=== PATIENT | female | born 1945 | race Caucasian/White ===

== ENCOUNTER 2021-01-20 21:17 | Inpatient (IN) | payer MEDICARE, OTHER ==
[~2021-01-20] VITALS: Ht 160 cm; Wt 135.0 kg
[~2021-01-20 21:17] MED LIST: ASPIRIN325 MG PO; EXFORGE 5-1601 EACH PO; FENOFIBRATE145 MG PO; OS-CAL+D500 MG PO; PERCOCET 5/3251 TAB PO; VITAMIN E200 UNI1 PO
[2021-01-20 21:47] LABS: BASOPHIL 0.3 % (0-2); EOSINOPHIL 0.3 % (0-7); HCT 44.2 % (37.0-47.0); HGB 13.5 g/dl (12.5-16.0); LYMPHOCYTE 8.1 % (15-48); MCH 27.8 pg (25.0-31.0); MCHC 30.5 g/dL (32.0-36.0); MCV 91.1 fL (78.0-100.0); MONOCYTE 4.4 % (0-12); MPV 11.5 fL (6.0-9.5); NEUTROPHIL 86.4 % (41-80); NRBC 0; PLT 245 K/uL (150-400); RBC 4.85 M/uL (4.20-5.40); RDW 15.4 % (11.5-14.0); WBC 15.8 K/uL (4.0-10.5)
[2021-01-20 22:10] LABS: PRO-BNP 1820 pg/mL (<125)
[2021-01-20 22:12] LABS: ALBUMIN 3.9 g/dL (3.4-5.0); BUN/CREAT RATIO (CALC) 22.2 RATIO; CREATININE 0.72 mg/dL (0.51-0.95); GLOBULIN (CALCULATION) 3.8 g/dL; TOTAL PROTEIN 7.7 g/dL (6.4-8.2)
[2021-01-20 22:17] LABS: LACTIC ACID 2.3 mmol/L (0.4-1.9)
[2021-01-20 23:11] LABS: CORONAVIRUS 2019 SARS-COV-2 NEGATIVE (NEGATIVE); INFLUENZA A NAA NEGATIVE (NEGATIVE)
[2021-01-21 02:37] LABS: BUN/CREAT RATIO (CALC) 21.9 RATIO; CREATININE 0.73 mg/dL (0.51-0.95); POTASSIUM 4.2 mmol/L (3.5-5.1)
[2021-01-21] MEDS ORDERED: ACULAR5 ML OS (03:22)
--- NOTE | 2021-01-21 06:58 | NUR ---
PT ON CARDIZEM DRIP RUNNING AT 10. 0400 - 107 HR, 123/70 BP 0500 - 92 HR, 120/94 BP 0600 - 87 HR, 114/62 BP
[2021-01-21 07:11] LABS: BASOPHIL 0.1 % (0-2); EOSINOPHIL 0 % (0-7); HCT 37.7 % (37.0-47.0); HGB 11.9 g/dl (12.5-16.0); LYMPHOCYTE 5.5 % (15-48); MCH 28.2 pg (25.0-31.0); MCHC 31.6 g/dL (32.0-36.0); MCV 89.3 fL (78.0-100.0); MONOCYTE 0.9 % (0-12); MPV 11.6 fL (6.0-9.5); NEUTROPHIL 93.1 % (41-80); NRBC 0; PLT 220 K/uL (150-400); RBC 4.22 M/uL (4.20-5.40); RDW 15.5 % (11.5-14.0); WBC 11.4 K/uL (4.0-10.5)
[2021-01-21 07:35] LABS: CREATININE 0.75 mg/dL (0.51-0.95); MAGNESIUM 1.8 mg/dL (1.8-2.4); POTASSIUM 4.1 mmol/L (3.5-5.1)
[2021-01-21] MEDS ORDERED: SINGULAIR10 MG PO (13:46)
[2021-01-21] MEDS ORDERED: IRBESARTAN300 MG PO (13:47)
[2021-01-21] MEDS ORDERED: MILK THISTLE175 M1 PO (13:48)
[2021-01-21] MEDS ORDERED: VENTOLIN HFA IN18 GM INH (13:50)
[2021-01-21] MEDS ORDERED: CENTRUM SILVER1 EAC4 PO (13:51)
[2021-01-21] MEDS ORDERED: CAL MAG ZINC +1 EAC1 PO (13:53)
[2021-01-22 05:23] LABS: BASOPHIL 0.1 % (0-2); EOSINOPHIL 0 % (0-7); HGB 11.6 g/dl (12.5-16.0); LYMPHOCYTE 6.2 % (15-48); MCH 27.8 pg (25.0-31.0); MCHC 30.5 g/dL (32.0-36.0); MCV 90.9 fL (78.0-100.0); MONOCYTE 4.3 % (0-12); MPV 11.5 fL (6.0-9.5); NEUTROPHIL 88.9 % (41-80); NRBC 0; PLT 228 K/uL (150-400); RBC 4.18 M/uL (4.20-5.40); RDW 15.5 % (11.5-14.0); WBC 14.3 K/uL (4.0-10.5)
[2021-01-22 05:42] LABS: BUN/CREAT RATIO (CALC) 28.4 RATIO; CREATININE 0.81 mg/dL (0.51-0.95); MAGNESIUM 2.2 mg/dL (1.8-2.4); POTASSIUM 4.5 mmol/L (3.5-5.1)
[2021-01-23 06:13] LABS: BASOPHIL 0.1 % (0-2); EOSINOPHIL 0.1 % (0-7); HCT 38.4 % (37.0-47.0); HGB 11.5 g/dl (12.5-16.0); MCH 27.7 pg (25.0-31.0); MCHC 29.9 g/dL (32.0-36.0); MCV 92.5 fL (78.0-100.0); MONOCYTE 7.6 % (0-12); MPV 11.8 fL (6.0-9.5); NEUTROPHIL 81.7 % (41-80); NRBC 0; PLT 246 K/uL (150-400); RBC 4.15 M/uL (4.20-5.40); RDW 15.4 % (11.5-14.0); WBC 14.8 K/uL (4.0-10.5)
[2021-01-23 06:38] LABS: BUN/CREAT RATIO (CALC) 32.9 RATIO; CREATININE 0.73 mg/dL (0.51-0.95); MAGNESIUM 2.2 mg/dL (1.8-2.4); POTASSIUM 4.5 mmol/L (3.5-5.1)
[2021-01-24 07:14] LABS: BASOPHIL 0.2 % (0-2); EOSINOPHIL 0.1 % (0-7); HCT 41.8 % (37.0-47.0); HGB 12.4 g/dl (12.5-16.0); LYMPHOCYTE 12.6 % (15-48); MCH 27.9 pg (25.0-31.0); MCHC 29.7 g/dL (32.0-36.0); MCV 94.1 fL (78.0-100.0); MONOCYTE 7.4 % (0-12); MPV 11.7 fL (6.0-9.5); NEUTROPHIL 78.9 % (41-80); NRBC 0; PLT 268 K/uL (150-400); RBC 4.44 M/uL (4.20-5.40); RDW 15.2 % (11.5-14.0); WBC 12.7 K/uL (4.0-10.5)
[2021-01-24 07:25] LABS: BUN/CREAT RATIO (CALC) 26.6 RATIO; CREATININE 0.79 mg/dL (0.51-0.95); POTASSIUM 4.7 mmol/L (3.5-5.1)
--- NOTE | 2021-01-24 15:37 | NUR ---
01/24/21 Ms. Carr lives in the home of her son. Her grandson an a daughter also live in the home. She has a cane, rollator, and s. chair. - A referral has been made to [facility] for nursing and PT home safety eval per family choice. - Will monitor for 02 needs.
[2021-01-25 01:46] LABS: BASOPHIL 0.1 % (0-2); EOSINOPHIL 0.1 % (0-7); HCT 39.3 % (37.0-47.0); LYMPHOCYTE 12.3 % (15-48); MCHC 30.5 g/dL (32.0-36.0); MCV 91.6 fL (78.0-100.0); MONOCYTE 6.7 % (0-12); MPV 11.6 fL (6.0-9.5); NEUTROPHIL 79.8 % (41-80); NRBC 0; PLT 233 K/uL (150-400); RBC 4.29 M/uL (4.20-5.40); RDW 14.9 % (11.5-14.0); WBC 10.5 K/uL (4.0-10.5)
[2021-01-25 02:03] LABS: BUN/CREAT RATIO (CALC) 25.3 RATIO; CREATININE 0.75 mg/dL (0.51-0.95); POTASSIUM 4.5 mmol/L (3.5-5.1)
--- NOTE | 2021-01-25 08:25 | NUR ---
PT WAS WALKED TO RESTROOM WITH WALKER WITH AIDE. AIDE NOTIFIED THIS RN THAT PT WAS EXPERIENCING SOME BLEEDING IN [place]IAREA. THIS RN WENT TO ASSESS AND BELIEVES TRAUMA WAS CAUSED BY CATHETER YESTERDAY 01-25-21 WHEN PT STATES IT GOT CAUGHT ON TOILET AND PULLED. SHE STATED THAT ANOTHER RN YESTERDAY ADDED MORE SALINE IN THE BALLOON. THIS RN NOTICED BLOOD ON THE CATHETER TIP AFTER REMOVAL. NO BLOOD IN ACTUAL URINE. NOTIFIED MD AND MD URENA ORDERTO REMOVE COOL R/T PT BEING ABLE TO AMBULATE WELL.
--- NOTE | 2021-01-25 14:43 | NUR ---
01/25/2021 Discharge is planned for 01/25. [facility] was notified of planned discharge date. A referral was made to [facility] for home . A report was given to CHARISMA Alaniz RN.
[2021-01-26] MEDS ORDERED: CARDIZEM CD240 MG PO ×2 (12:22→17:54)
[2021-01-26] MEDS ORDERED: ELIQUIS5 MG PO ×2 (12:22→17:54)
[2021-01-26] MEDS ORDERED: AUGMENTIN 875-1 EACH PO ×2 (12:22→17:54)
[2021-01-26] MEDS ORDERED: PREDNISONE 20MG20 MG PO ×2 (12:22→17:54)
[2021-01-26] MEDS ORDERED: LASIX20 MG PO ×2 (12:22→17:54)
--- NOTE | 2021-01-26 12:49 | NUR ---
01/26 Deepika'iban has delivered 02. [facility] was notified of discharge.
[2021-01-26] MEDS ORDERED: VENTOLIN HFA IN18 GM INH ×2 (14:49→15:08)
== END 2021-01-26 15:20 | disposition home health service (06) | DRG 871 ==
LOC: FER 21:17 → FTCU 01-21 03:07
PROVIDERS: Internal Medicine; Nurse Practitioner; ADMIT Internal Medicine
DX: A41.9 Sepsis, unspecified organism (principal); I50.33 Acute on chronic diastolic (congestive) heart failure; J18.9 Pneumonia, unspecified organism; J96.01 Acute respiratory failure with hypoxia; J44.1 Chronic obstructive pulmonary disease with (acute) exacerbation; J98.11 Atelectasis; E87.2 Acidosis; J44.0 Chronic obstructive pulmonary disease with (acute) lower respiratory infection; Z68.43 Body mass index [BMI] 50.0-59.9, adult; R65.20 Severe sepsis without septic shock; Z20.822 Contact with and (suspected) exposure to COVID-19; E66.01 Morbid (severe) obesity due to excess calories; I48.91 Unspecified atrial fibrillation; G47.33 Obstructive sleep apnea (adult) (pediatric); I11.0 Hypertensive heart disease with heart failure; R31.9 Hematuria, unspecified; E78.5 Hyperlipidemia, unspecified; Z96.611 Presence of right artificial shoulder joint; R73.9 Hyperglycemia, unspecified; Z98.51 Tubal ligation status; Z88.5 Allergy status to narcotic agent; Z88.7 Allergy status to serum and vaccine; Z91.012 Allergy to eggs; Z88.8 Allergy status to other drugs, medicaments and biological substances; Z87.01 Personal history of pneumonia (recurrent); Z82.61 Family history of arthritis; Z81.1 Family history of alcohol abuse and dependence; Z82.49 Family history of ischemic heart disease and other diseases of the circulatory system
CPT/HCPCS: 36415; 36600; 71045; 71275; 80048; 80053; 80202; 82803; 83036; 83605; 83735; 83880; 84145; 84443; 84484; 85025; 85379; 87040; 87077; 87186; 93005; 94640; 94664; 94762; 96365; 96372; 96375; 96376; 97162; 97530-GP; J1100; J1650; J2060; J2543; J3370; J7030; J7040; J7050; J7512; Q9967; U0002